=== PATIENT | female | born 1980 | race Caucasian/White ===

== ENCOUNTER 2022-01-10 17:27 | Emergency (ER) | payer OTHER ==
[~2022-01-10 17:27] MED LIST: CATAPRES 0.1MG0.1 MG PO; IBUPROFEN600 MG PO; KEFLEX CAP 500500 MG PO; LEXAPRO10 MG PO; LOVENOX SY40 MG/0.4 SQ; MAXIPIME2 GM IV; NEURONTIN 400400 MG PO; PERCOCET 10-321 EACH PO; PERCOCET 7.5-31 EACH PO; XANAX1 MG PO
== END 2022-01-10 20:09 | disposition home or self-care (01) ==
LOC: ER1 17:27
DX: S93.402A Sprain of unspecified ligament of left ankle, initial encounter (principal); F17.290 Nicotine dependence, other tobacco product, uncomplicated; X50.9XXA Other and unspecified overexertion or strenuous movements or postures, initial encounter; Y92.410 Unspecified street and highway as the place of occurrence of the external cause
CPT/HCPCS: 73610; 73630; 99283